=== PATIENT | male | born 1985 | race Caucasian/White ===

== ENCOUNTER 2021-11-19 19:24 | Emergency (ER) | payer BC ==
[~2021-11-19] VITALS: Ht 188 cm; Wt 77.1 kg
[2021-11-19 19:31] VITALS: BP_SYST 128
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
--- NOTE | 2021-11-19 19:50 | NUR ---
Patient to ER bed 1 to gown for evaluation. Side rails up. Report given to NELLI MERRILL.
[2021-11-19] MEDS ORDERED: DIPHTH,PERTUSS(ACELL),TET VAC 0.5 ML VIAL (Tdap) I.M. ONE (20:00)
[2021-11-19] MEDS ORDERED: BACITRACIN 1 GM OINT TP ONE (20:00)
[2021-11-19] MEDS ORDERED: LIDOCAINE 1% 10 MG/ML, 20 ML MDV INJ ONE ×2 (20:00)
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
[2021-11-19] MEDS ORDERED: LIDOCAINE 1%, 20 ML MDV 20 ML ONE (20:03)
--- NOTE | 2021-11-19 20:15 | NUR ---
DR DAY AT BEDSIDE PERFORMING LACERATION REPAIR, PT TOLERATING WELL. CONSENT SIGNED, FORM IN CHART.
--- NOTE | 2021-11-19 20:40 | NUR ---
LACERATION CLEANED WITH NS, PAT DRY, APPLIED BACITRACIN , COVERED WITH TEFLA AND WRAP WITH BRENDA BANDAGE. PT TOLERATED WELL.
--- NOTE | 2021-11-19 20:45 | NUR ---
Patient given written and verbal discharge instructions and verbalizes understanding. ER MD discussed with patient the results and treatment provided. Patient in stable condition. ID arm band removed. Patient educated on pain management and to follow up with PMD. Pain Scale 0. Opportunity for questions provided and answered. Medication side effect fact sheet provided.
[2021-11-19 20:54] VITALS: BP_SYST 122
== END 2021-11-19 20:54 | disposition home or self-care (01) ==
LOC: SED 19:24
DX: S61.512A Laceration without foreign body of left wrist, initial encounter (principal); Z79.899 Other long term (current) drug therapy; W20.8XXA Other cause of strike by thrown, projected or falling object, initial encounter; Y93.89 Activity, other specified; Y92.89 Other specified places as the place of occurrence of the external cause; Y99.8 Other external cause status
CPT/HCPCS: 99283; 90715; 90471; 12004; J2001

== ENCOUNTER 2021-11-22 13:47 | Emergency (ER) | payer BC ==
[~2021-11-22] VITALS: Ht 188 cm; Wt 113.4 kg
[2021-11-22 13:56] VITALS: BP_SYST 128
--- NOTE | 2021-11-22 17:41 | NUR ---
CALL FOR PATIENT, NO ANSWER
[2021-11-22 18:00] VITALS: BP_SYST 128
--- NOTE | 2021-11-22 18:00 | NUR ---
SECOND CALL FOR PATIENT, NO ANSWER
== END 2021-11-22 18:00 | disposition left against medical advice (07) ==
LOC: SED 13:47
DX: T81.31XA Disruption of external operation (surgical) wound, not elsewhere classified, initial encounter (principal); Z53.21 Procedure and treatment not carried out due to patient leaving prior to being seen by health care provider

== ENCOUNTER 2022-04-10 09:31 | Emergency (ER) | payer BC ==
[~2022-04-10] VITALS: Ht 185.4 cm; Wt 77.1 kg
[2022-04-10 09:42] VITALS: BP_SYST 122
--- NOTE | 2022-04-10 09:45 | NUR ---
PT PLACED IN ROOM 8. BOTH SIDE RAILS UP. PT VSS. NAD NOTED. CARE ENDORSED TO EFRAIN MEEHAN.
--- NOTE | 2022-04-10 10:09 | NUR ---
ER Dr. Arrieta at bedside examining patient.
--- NOTE | 2022-04-10 10:10 | NUR ---
Pt bib self ambulated to bed 8. Pt A&Ox4, C/O redness and swelling of right index finger r/t splinter. Pt denies fever and chills. Pt states tender to touch. Pt states no relief measures done at home. Pt last tetanus unknown.
--- NOTE | 2022-04-10 10:14 | NUR ---
Lab at bedside
[2022-04-10 10:39] LABS: BASOPHILS % (AUTO) 0.6 % (0.0-2.0); EOSINOPHILS # (AUTO) 0.4 K/uL (0.0-0.4); EOSINOPHILS % (AUTO) 7.7 % (0.0-4.0); HEMATOCRIT 43.2 % (36-54); HEMOGLOBIN 14.9 g/dL (14.0-18.0); LYMPHOCYTES # (AUTO) 1.1 K/uL (1.0-5.5); LYMPHOCYTES % (AUTO) 20.1 % (20.5-51.5); MEAN CORPUSCULAR HEMOGLOBIN 31 pg (27-31); MEAN CORPUSCULAR HGB CONC 35 % (32-36); MEAN CORPUSCULAR VOLUME 90 fL (79.0-98.0); MONOCYTES # (AUTO) 0.5 K/uL (0.0-1.0); MONOCYTES % (AUTO) 9.1 % (1.7-9.3); NEUTROPHILS # (AUTO) 3.6 K/uL (1.8-7.7); NEUTROPHILS % (AUTO) 62.5 % (40.0-70.0); PLATELET COUNT (AUTO) 223 K/uL (130-430); RED BLOOD CELL COUNT(AUTO) 4.78 MIL/uL (4.2-6.2); RED CELL DISTRIBUTION WIDTH 12.9 % (9.0-15.0); WHITE BLOOD COUNT (AUTO) 5.7 K/uL (4.8-10.8)
[2022-04-10 10:57] LABS: C-REACTIVE PROTEIN QUANT < 0.2 mg/dL (0-0.5)
[2022-04-10 11:10] LABS: ANION GAP 9 (5-15); CALCIUM 9.2 mg/dL (8.4-11.0); CHLORIDE 103 mmol/L (98-107); CREATININE 0.81 mg/dL (0.55-1.30); GLUCOSE 163 mg/dL (70-99); UREA NITROGEN, BLOOD 11 mg/dL (8-21)
[2022-04-10 11:15] LABS: ALANINE AMINOTRANSFERASE 25 U/L (12-78); ALBUMIN 3.8 g/dL (3.4-4.8); ASPARTATE AMINOTRANSFERASE 13 U/L (10-37); TOTAL BILIRUBIN 0.5 mg/dL (0.0-1.0)
[2022-04-10] MEDS ORDERED: CLIN-142 PO (11:17)
[2022-04-10 11:19] LABS: GFR AFRICAN AMERICAN 139 mL/min (>90)
[2022-04-10 11:33] VITALS: BP_SYST 122
--- NOTE | 2022-04-10 11:35 | NUR ---
Patient given written and verbal discharge instructions and verbalizes understanding. AMINATA Arrieta discussed with patient the results and treatment provided. Patient in stable condition. ID arm band removed. Rx of Clindamycin given. Patient educated on pain management and to follow up with PMD. Pain Scale 2/10. Opportunity for questions provided and answered. Medication side effect fact sheet provided.
== END 2022-04-10 11:33 | disposition home or self-care (01) ==
LOC: SED 09:31
DX: M65.88 Other synovitis and tenosynovitis, other site (principal); R22.31 Localized swelling, mass and lump, right upper limb; Z79.899 Other long term (current) drug therapy
CPT/HCPCS: 36415; 73140-TC; 80053; 83605; 85025; 86140; 99284